=== PATIENT | male | born 1965 | race Caucasian/White ===

== ENCOUNTER 2023-10-15 09:51 | Outpatient (OUT) | payer SELFPAY ==
[2023-10-15 10:23] LABS: Bilirubin Urine NEGATIVE (NEGATIVE); Blood Urine NEGATIVE (NEGATIVE); Clarity Urine CLEAR (CLEAR); Color Urine LT. YELLOW (YELLOW); Glucose Urine UA NEGATIVE (NEGATIVE); Ketones Urine NEGATIVE (NEGATIVE); Leukocyte Esterase Urine NEGATIVE (NEGATIVE); Nitrite Urine NEGATIVE (NEGATIVE); Protein Urine NEGATIVE (NEG/TRACE); Specific Gravity Urine 1.025 (1.005-1.025); Urobilinogen Urine 0.2 EU/dL (0.2-1.0)
[2023-10-15 10:42] LABS: Bacteria Urine TRACE #/HPF (NONE SEEN); Cast Seen? NONE SEEN #/LPF (NONE SEEN); Crystals Seen? None Seen #/HPF (None Seen); Mucus Urine TRACE (NONE SEEN); RBC Urine 0-2 #/HPF (0-2); Squamous Epithelial Cell Urine RARE #/LPF (NONE/RARE)
[2023-10-16 05:08] LABS: HCV Antibody Non Reactive (Non Reactive)
== END 2023-10-15 09:52 | disposition home or self-care (01) ==
LOC: LAB 09:52
DX: I10 Essential (primary) hypertension (principal); Z11.59 Encounter for screening for other viral diseases
CPT/HCPCS: 36415; 81001; 86803

== ENCOUNTER 2024-12-19 08:34 | Outpatient (OUT) | payer SELFPAY ==
--- OUTSIDE RECORDS SUMMARY | 2024-12-19 08:40 | XMS_ITS | Clinical Summary ---
Author Organization [facility]AElo[facility] Address [address] [facility] [facility] [address], [address] [place] [address] Care Team Providers Care Global Sales Executive Name Role Phone Parveen Mullins MD Primary Care Provider [phone]- [phone] Allergies No known active allergies Medications MedicationSigDispense QuantityRefillsLast FilledStart DateEnd DateStatus amLODIPine (NORVASC) 5 MG tablet Indications:Primary hypertensionTake 1 tablet by mouth daily 90 tablet 5Active tadalafil (CIALIS) 5 MG tablet Take 1 tablet by mouth daily 90 tablet 5Active tamsulosin (FLOMAX) 0.4 MG capsule TAKE 1 CAPSULE BY MOUTH EVERY EVENING 90 capsule 5Active sildenafil (REVATIO) 20 MG tablet Indications:Other male erectile dysfunctionTake 3-5 tablets by mouth on an empty stomach as needed for erectile dysfunction 30 tablet 5Active valsartan-hydroCHLOROthiazide (DIOVAN HCT) 160-12.5 MG per tablet Indications:Primary hypertensionTake 1 tablet by mouth daily 90 tablet 504/6Active valsartan-hydroCHLOROthiazide (DIOVAN HCT) 160-12.5 MG per tablet Indications:Primary hypertensionTake 1 tablet by mouth daily 90 tablet Discontinued(REORDER) Active Problems ProblemNoted DateDiagnosed DateProstate zdyocb4103/24/2022PH with obstruction/lower urinary tract pipmqrqa40/24/2020Elevated PSA04/21/2019Other male erectile vgcmidzgbgt88/14/7608Axdqugkmdh07/14/7649Pufggqv24/09/2018 Encounters DateTypeDepartmentCare FyvdMyumtiqcaqd39/20/2025[facility] [address] [place] [address] [address] [place] [address] Parveen Mullins MD Medication Acqydg5510/16/2024 10:00 AM EDTOffice Visit [facility] Part of [address] [place] [address] Emily Ramirez, ACTIVITIES LEADER - SHIPPING LEAD Prostate cancer (HCC) (Primary Dx); BPH with obstruction/lower urinary tract symptoms; Other male erectile fyeanzmonto43/20/2025Orders Only [address] [place] [address] Valarie Blackmon MD 09/19/2024Ref[address] [place] [address] Parveen Mullins MD Medication Vdcfos0309/18/2024 8:00 AM EDTOffice Visit [address] [place] [address] Parveen Mullins MD Primary hypertension (Primary Dx); Mixed hyperlipidemia; Screening for HIV without presence of risk factors; Need for hepatitis C screening testfrom Last 3 Months Family History Medical HistoryRelationNameCommentsCancerMotherRelationNameStatusCommentsFather DeceasedMotherAlive Social History Tobacco UseTypesPacks/DayYears UsedDateSmoking Tobacco: NeverSmokeless Tobacco: Never Tobacco Cessation:Counseling Given: Not Answered Alcohol UseStandard Drinks/WeekCommentsNot Currently0 (1 standard drink = 0.6 oz pure alcohol)socialAHC UtilitiesAnswerDate RecordedIn the past 12 months has the [employer], gas, oil, or water [employer] threatened to shut off services in your home?No09/18/2024Overall Financial Resource Strain (CARDIA)AnswerDate Recorded How hard is it for you to pay for the very basics like food, housing, medical care, and heating?Not hard at all4PHQ-2AnswerDate RecordedPHQ-9 Total Aelqz204/24/2025Hunger Vital SignAnswerDate RecordedWithin the past 12 months, you worried that your food would run out before you got the money to buymore. Never true09/18/2024Within the past 12 months, the food you bought just didn't last and you didn't have money to get more.Never true09/18/2024PRAPARE - TransportationAnswerDate RecordedIn the past 12 months, has lack of transportation kept you from medical appointments or from getting medications?No 09/18/2024In the past 12 months, has lack of transportation kept you from meetings, work, or from getting things needed for daily living?No09/18/2024 Housing Stability Vital SignAnswerDate RecordedUnable to Pay for Housing in the Last YearNot on file07/05/2023Number of Places Lived in the Last YearNot on file 07/05/2023In the last 12 months, was there a time when you did not have a steady place to sleep or slept in [facility] (including now)?No07/05/2023Housing Stability Vital SignAnswerDate RecordedIn the last 12 months, was there a time when you were not able to pay the mortgage or rent on time?No09/18/2024In the past 12 months, how many times have you moved where you were living? At any time in the past 12 months, were you homeless or living in a snf (including now)?No09/18/2024Food InsecurityAnswerDate RecordedWithin the past 12 months, you worried that your food would run out before you got the money to buy more.Within the past 12 months, the food you bought just didn't last and you didn't have money to get more.Sex and Gender InformationValue Date RecordedSex Assigned at BirthNot on fileLegal NelFadj1704/01/2019 9:44 AM EST Gender IdentityNot on fileSexual OrientationNot on file Last Filed Vital Signs Vital SignReadingTime TakenCommentsBlood Zfoaefng000/7708 10:01 AM EDT Ftahy3219/21/2025 9:53 AM RFQAnyufclreai93.5 ??C (97.7 ??F)10/16/2024 9:53 AM EDTRespiratory Rauk585010/17/2023 8:44 AM EDTOxygen Pqadoxorii09%09/18/2024 7:49 AM EDTInhaled Oxygen Concentration--Lvvqdj71.8 kg (220 lb)10/16/2024 9:53 AM EDT Lxrqvd712.3 cm (5' 11 )05/15/2024 7:55 AM EDTBody Mass Index30.68005/15/2024 7:55 AM EDT Plan of Treatment DateTypeDepartmentCare Team (Latest Contact Info)Cwcyumjvzkq93/28/2025 8:00 AM EDTOffice Visit [facility] [address] [place] [address] [address] [place] [address] Parveen Mullins MD [address] [place] [address] [address] [place], [place] [id number] fu htn hld labs before.10/20/2025 8:00 AM EDTOffice Visit [facility] Part of [address] [place] [address] Elías Moore, PASocorroC [address] [place] [address] [address] [place] [address] 1Y PSAHealth MaintenanceDue DateLast DoneCommentsHIV tomqou9901/30/1978Hepatitis C vfdvdo3301/30/1981DTaP/Tdap/Td vaccine (1 - Tdap)01/30/19820440Puxzgzoyqqx64/05/2008 Colorectal Cancer Fehurd0401/31/2008FIT/FOBT: Average risk01/31/2008Fecal-DNA (Cologuard): Average risk01/31/2008Sigmoidoscopy/CT wkbspiggkqms39/05/2008 Pneumococcal 50+ years Vaccine (1 of 1 - PCV)2013Shingles vaccine (1 of 2) 2013Flu vaccine (#1)5COVID-19 Vaccine (1 - season) 2024Prostate Specific Antigen (PSA) Screening or Gxinjxycxb08/19/2026 04/16/2024, 10/15/2023, 11/27/2022, Additional history existsGFR test (Diabetes, CKD 3-4, OR last GFR 15-59)/01/2025, 01/16/2024, 09/03/2023 Depression Qtkozr55, 09/18/2024Diabetes egxtrc9804/24/2026 04/24/20239236Chabox01, 04/24/2023espiratory Syncytial Virus (RSV) or age 60 yrs+ (1 - 1-dose 75+ series)2038Hepatitis A vaccineAged OutNo longer eligible based on patient's age to complete this topic Hepatitis B vaccineAged OutNo longer eligible based on patient's age to complete this topicHib vaccineAged OutNo longer eligible based on patient's age to complete this topicMeningococcal (ACWY) vaccineAged OutNo longer eligible based on patient's age to complete this topicMeningococcal B vaccineAged OutNo longer eligible based on patient's age to complete this topicPolio vaccineAged OutNo longer eligible based on patient's age to complete this topic Procedures Procedure NamePriorityDate/TimeAssociated DiagnosisCommentsMEAS,POST-VOID RES,US,NON-CDNFQNZXozujof61/21/2025 10:12 AM EDT BPH with obstruction/lower urinary tract symptoms PSA XIVVLJWankicu92/19/2025 10:31 AM EDTBASIC METABOLIC VQVFZUnlbkke70/12/2025 Primary hypertension LIPID RXNZZWcyqqhe51/12/2025 PSA, UMIGVHBCFXQdsfeap67/19/2025 Prostate cancer (HCC) HEMOGLOBIN U6FGetomrj73/27/2024 from Last 3 Months or Most Recently Relevant to Health Maintenance Results * PSA Screen (10/14/2024 10:31 AM EDT)Specimen (Source)Anatomical Location / LateralityCollection Method / VolumeCollection TimeReceived TimeBloodBLOOD SPECIMEN / Unknown Narrative Authorizing ProviderResult TypeResult StatusHistorical Provider MDCHEMISTRY ORDERABLESFinal Result * (ABNORMAL) Lipid Panel (05/07/2024)ComponentValueRef RangeTest MethodAnalysis TimePerformed AtPathologist SignatureCholesterol, Jmlrm608(H)mg/sCEFO2854 - 70 mg/dLLDL Uxsdclqtxtr840.5Owhebrzfmdvhb23qj/dLChol/HDL Ratio4.5FRJO07.6mg/dL Cholesterol non HDLSpecimen (Source)Anatomical Location / LateralityCollection Method / VolumeCollection TimeReceived TimeBloodBLOOD SPECIMEN / Unknown 05/07/2024 Narrative Authorizing ProviderResult TypeResult StatusHistorical Provider MDCHEMISTRY ORDERABLESEdited Result - Final * (ABNORMAL) Basic Metabolic Panel (05/07/2024)ComponentValueRef RangeTest MethodAnalysis TimePerformed AtPathologist MnuqqhldcTjqxir790lnfx/XGecikmpm957 mmol/LPotassium4.0mmol/LBUN24.0(H)mg/dLCreatinine1.26mg/iVDfcrlxn452zn/dLCO2 29.8mmol/LCalcium9.0mg/dLEst, Glom Filt Rate58(L)Comment:see impression Specimen (Source)Anatomical Location / LateralityCollection Method / Volume Collection TimeReceived TimeBloodBLOOD SPECIMEN / Ysdqler7305/07/2024 Impressions Renetta Mcgee MA - 05/07/2024 EGFR AA: >60 EGFR JACQUELINE: 58 (low) Narrative Authorizing ProviderResult TypeResult StatusTanclemencia Mullins MDCHEMISTRY ORDERABLESFinal Result * PSA, Diagnostic (04/16/2024)ComponentValueRef RangeTest MethodAnalysis Time Performed AtPathologist SignaturePSA8.19ng/mLSpecimen (Source)Anatomical Location / LateralityCollection Method / VolumeCollection TimeReceived Time BLOOD SPECIMEN / Xjkddps7404/16/2024 Narrative Authorizing ProviderResult TypeResult StatusEmily Ramirez ACTIVITIES LEADER - SHIPPING LEAD CHEMISTRY ORDERABLESEdited Result - Final * Hemoglobin A1C (04/24/2023)ComponentValueRef RangeTest MethodAnalysis Time Performed AtPathologist SignatureHemoglobin A1C5.5%Estimated Avg Kytnupi804 Specimen (Source)Anatomical Location / LateralityCollection Method / Volume Collection TimeReceived TimeBloodBLOOD SPECIMEN / Xqxnnje7604/24/2023 Narrative Authorizing ProviderResult TypeResult StatusHistorical Provider MDCHEMISTRY ORDERABLESFinal Result from Last 3 Months or Most Recently Relevant to Health Maintenance Care Teams Team MemberRelationshipSpecialtyStart DateEnd Date Parveen Mullins MD [address] [place] [address] PCP - GeneralFamily Medicine10/15/23
--- OUTSIDE RECORDS SUMMARY | 2024-12-19 08:40 | XMS_ITS | Encounter Summary ---
Author Organization [facility] Address [address], [address] [place] [address] Care Team Providers Care Junior Legal Secretary Name Role Phone Parveen Mullins MD Primary Care Provider +1- [phone] Reason for Visit * ReasonOnset DateCommentsMedication Mmmhuw9812/15/2024 Encounter Details DateTypeDepartmentCare Team (Latest Contact Info)Kjkmbacxwfl99/20/2025[facility] [address] [place] [address] [place] [address] Parveen Mullins MD [address] [place] [address] Medication Refill Social History Tobacco UseTypesPacks/DayYears UsedDateSmoking Tobacco: NeverSmokeless Tobacco: NeverAlcohol UseStandard Drinks/WeekCommentsNot Currently0 (1 standard drink = 0.6 oz pure alcohol)[facility] UtilitiesAnswerDate RecordedIn the past 12 months has the [employer], gas, oil, or water [employer] threatened to shut off services in your home?No09/18/2024Overall Financial Resource Strain (CARDIA)AnswerDate RecordedHow hard is it for you to pay for the very basics like food, housing, medical care, and heating?Not hard at all07/05/2023HQ-2AnswerDate RecordedPHQ-9 Total Zimqd348Hunger Vital SignAnswerDate RecordedWithin the past 12 months, you worried that your food would run out before you got the money to buy more.Never true09/18/2024Within the past 12 months, the food [...] steady place to sleep or slept in ashelter (including now)?No07/05/2023Housing Stability Vital SignAnswerDate RecordedIn the last 12 months, was there a time when you were not able to pay the mortgage or rent on time?No09/18/2024In the past 12 months, how many times have you moved where you were living? At any time in the past 12 months, were you homeless or living in a senior living (including now)?No09/18/2024Food InsecurityAnswerDate RecordedWithin the past 12 months, you worried that your food would run out before you got the money to buy more.Within the past 12 months, the food you bought just didn't last and you didn't have money to get more.Sex and Gender InformationValue Date RecordedSex Assigned at BirthNot on fileLegal FbwIvvr5004/01/2019 9:44 AM EST Gender IdentityNot on fileSexual OrientationNot on filedocumented as of this encounter Plan of Treatment DateTypeDepartmentCare Team (Latest Contact Info)Ygcyfpcnija58/28/2025 8:00 AM EDTOffice Visit [facility] [address] [place] [address] [place] [address] Parveen Mullins MD [address] [place] [address] fu htn hld labs before.10/20/2025 8:00 AM EDTOffice Visit [facility] Part of [facility] [address] [place] [address] Elías Moore, PA-C [address] [place] [address] 1Y PSAdocumented as of this encounter Visit Diagnoses Diagnosis Primary hypertension Unspecified essential hypertension documented in this encounter Care Teams Team MemberRelationshipSpecialtyStart DateEnd Date HarpreetParveen MD [address] [facility] [place] [address] PCP - GeneralFamily Medicine10/15/23documented as of this encounter
--- OUTSIDE RECORDS SUMMARY | 2024-12-19 08:41 | XMS_ITS | CCD ---
Author Organization [facility] Care Team Providers Care Polymer Engineer Name Role Phone House, Sr Michael Barakat Primary Care Provider REQUEST, DR TORRES LISTED Consulting Unavaila ble HOUSE, DR DSOUZA Primary Care Unavailable MISC, DR TRUONG Admitting Unavailable MISC, DR TRUONG Attending Unavailable REQUEST, DR TORRES LISTED Attending Unavaila ble REQUEST, DR TORRES LISTED Consulting Unavaila ble REQUEST, DR TORRES LISTED Admitting Unavaila ble MISC, DR TRUONG Primary Care Unavailable MISC, DR TRUONG Admitting Unavailable HOUSE, DR DSOUZA Primary Care Unavailable MISC, DR TRUONG Attending Unavailable MISC, DR TRUONG Consulting Unavailable PAY ., DR GANDARA Attending Unavailable GRECHNY ., BARRETT TOLEDO Consulting Unavailabl e HOUSE, DR DSOUZA Primary Care Unavailable PAY ., DR GANDARA Admitting Unavailable House Sr., Michael HERCULES Primary Care Provider Elian Dior MD Primary Care Provider MICHAEL CHRISTINA SR Primary Care Unavailable HAYES RAMIREZ Referring Unavailable HOUSE SR, MICHAEL Barakat Primary Care Unavailable HAYES RAMIREZ Referring Unavailable NEWKIRK MICHAEL SALAS Primary Care Unavailable MELISSA MOORE Referring Unavailable HOUSE SR, MICHAEL Barakat Primary Care Unavailable JOCY SAINI Referring Unavailable ELIAN DIOR Referring Unavailable ELIAN DIOR Primary Care Unavailable Medications Current Medications MedicationDrug Class(es)DatesSig (Normalized)Sig (Original)ciprofloxacin 500 mg oral tablet (1 source)Quinolone AntimicrobialStart: 04-03-2019 End: 51-33-1681qzirbaxmwgfnw (CIPRO) 500 MG tablet Indications: Elevated PSA Take 1 tablet by mouth 2 times daily for 3 days Start 1 day prior to prostate biopsy 6 tablet 0 04/03/2019 04/06/2019 Activedoxazosin 1 mg oral tablet (3 sources)alpha-Adrenergic Blockertake 1 tablet by mouth once dailydoxazosin (CARDURA) 1 MG tablet Take 1 mg by mouth nightly 0 Activedoxycycline hyclate 100 mg oral tablet (2 sources)Tetracycline-class DrugStart: 06-22-2021 End: 22-57-4108mtja 1 tablet by mouth twice dailydoxycycline hyclate (VIBRA- TABS) 100 MG tablet Take 1 tablet by mouth 2 times daily for 14 days 28 tablet 0 06/22/2021 07/06/2021 ActiveStart: 05-10-2020 End: 09-91-0909awbs 1 tablet by mouth twice dailydoxycycline hyclate (VIBRA- TABS) 100 MG tablet Take 1 tablet by mouth 2 times daily for 14 days 28 tablet 0 05/10/2020 05/24/2020 Activeibuprofen 600 mg oral tablet (2 sources)Nonsteroidal Anti-inflammatory DrugStart: 03-15-2020 End: 18-62-7230adte 1 tablet by mouth three times dailyibuprofen (ADVIL;MOTRIN) 600 MG tablet Indications: Orchitis Take 1 tablet by mouth 3 times daily for 3 days 9 tablet 0 03/15/2020 03/18/2020 Activetake 1 tablet by mouth every six hours as needed for painibuprofen (ADVIL;MOTRIN) 400 MG tablet Take 1 tablet by mouth every 6 hours as needed for Pain 0 Activeketorolac tromethamine 10 mg oral tablet (1 source)Nonsteroidal Anti-inflammatory Drug, Cyclooxygenase InhibitorStart: 08-07-2023 End: 53-86-7543ippd 1 tablet by mouth every twelve hoursketorolac (TORADOL) 10 MG tablet Take 1 tablet by mouth every 12 hours 8 tablet 0 08/07/2023 08/06/2024 ActivelevoFLOXacin 500 mg oral tablet (2 sources)Quinolone AntimicrobialStart: 09-03-2023 End: 63-05-9436sdmp 1 tablet by mouth once dailylevoFLOXacin (LEVAQUIN) 500 MG tablet Take 1 tablet by mouth daily for 10 days 10 tablet 0 09/03/2023 09/13/2023 ActiveStart: 03-15-2020 End: 07-88-9188ivng 1 tablet by mouth once dailylevoFLOXacin (LEVAQUIN) 500 MG tablet Indications: Orchitis Take 1 tablet by mouth daily for 10 days 10 tablet 0 03/15/2020 03/25/2020 Activesildenafil 20 mg oral tablet (8 sources)Phosphodiesterase 5 InhibitorStart: 41-72-5847oewxabmuhz (REVATIO) 20 MG tablet Indications: Other male erectile dysfunction TAKE 3 TABLETS BY MOUTH NEEDED 30 tablet 3 11/06/2023 ActiveStart: 50-36-4932usjeuzwahx (REVATIO) 20 MG tablet Indications: Other male erectile dysfunction TAKE 3 TABLETS BY MOUTH NEEDED 30 tablet 3 09/21/2022 ActiveStart: 00-37-8383nawrxbtmvm (REVATIO) 20 MG tablet Indications: Other male erectile dysfunction TAKE 3 TABLETS BY MOUTH NEEDED 30 tablet 3 12/23/2021 ActiveStart: 91-43-3416wistsebszo (REVATIO) 20 MG tablet Take 3 tablets by mouth as needed (erectile dysfunction) 30 tablet 3 08/23/2020 ActiveStart: 66-57-8558hlblzetfhh (VIAGRA) 100 MG tablet Take 1 tablet by mouth as needed for Erectile Dysfunction 30 tablet 2 11/20/2019 Active Start: 20-37-7796sncaviqlhw (VIAGRA) 100 MG tablet TAKE 1 TABLET BY MOUTH NEEDED 0 03/27/2019 Activetadalafil 5 mg oral tablet (1 source)Phosphodiesterase 5 InhibitorStart: 18-98-4268fxpk 1 tablet by mouth once dailytadalafil (CIALIS) 5 MG tablet Take 1 tablet by mouth daily 30 tablet 11 05/10/2020 Activetamsulosin hydrochloride 0.4 mg oral capsule (5 sources)alpha-Adrenergic BlockerStart: 39-08-4309oeug 1 capsule by mouth once daily in the eveningtamsulosin (FLOMAX) 0.4 MG capsule Indications: Benign prostatic hyperplasia with lower urinary tract symptoms TAKE 1 CAPSULE BY MOUTH EVERY EVENING 90 capsule 3 05/09/2023 ActiveStart: 86-23-3212afgc 1 capsule by mouth once daily in the eveningtamsulosin (FLOMAX) 0.4 MG capsule TAKE 1 CAPSULE BY MOUTH EVERY DAY IN THE EVENING 90 capsule 3 02/23/2022 ActiveStart: 60-65-0885pgpd 1 capsule by mouth once daily in the eveningtamsulosin (FLOMAX) 0.4 MG capsule Indications: BPH with obstruction/lower urinary tract symptoms Ta ke 1 capsule by mouth every evening 90 capsule 3 12/22/2020 Active Problems Active Problems Problem ClassificationProblemDateDocumented DateEpisodic/ChronicCancer of prostate (5 sources)Malignant tumor of prostate; Translations: [Malignant neoplasm of prostate]Onset: [id number]wbm of device; implant or graft (3 sources)Leakage of indwelling urethral catheter, initial encounter; Translations: [LEAKAGE INDWELL URETHRALCATH INIT]Onset: 53-46-5752Farczfno Essential hypertension (2 sources)Essential hypertension; Translations: [Essential (primary) hypertension]Onset: 907490-91-5437FpdmvrgQfdxwupatiubh symptoms and ill- defined conditions (1 source)Presence of urogenital implants; Translations: [PRESENCE OF UROGENITAL IMPLANTS]Onset: 96-34-1817JkeeczgZmpslelfswm of prostate (8 sources)Benign prostatic hyperplasia; Translations: [Benign prostatic hypertrophy with outflow obstruction]Onset: 478396-65-9084Pqymhoe Inflammatory conditions of male genital organs (1 source)Chronic prostatitis; Translations: [Chronic prostatitis]Chronic Inflammatory conditions of male genital organs (1 source)Orchitis; Translations: [Orchitis]EpisodicOther aftercare (1 source)Other mcc (current) drug therapy; Translations: [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]Onset: 72-27-8262RyaybmfbWfnbc diseases of bladder and urethra (1 source)Other specified disorders of bladder; Translations: [OTHER SPECIFIED DISORDERS BLADDER]Onset: 75-05-4881CmkupywWqzsi male genital disorders (7 sources)Other male erectile dysfunction; Translations: [Impotence of organic origin]Onset: 703052-09-0071PcbknozHwmfq screening for suspected conditions (not mental disorders or infectious disease) (16 sources)Raised prostate specific antigen; Translations: [Elevated prostate specific antigen [PSA]]Onset: 489598-53-6084Xerylgme Past or Other Problems Problem ClassificationProblemDateDocumented DateEpisodic/ChronicCalculus of urinary tract (2 sources)Renal colic; Translations: [Unspecified renal colic]Onset: 09-03-2023 47-39-1732AimohsmiDrdxjrzj mellitus without complication (7 sources)Glycosuria; Translations: [Glycosuria]Onset: EpisodicGenitourinary symptoms and ill-defined conditions (11 sources)Dysuria; Translations: [Increased frequency of urination]Onset: 155432-06-2550TnygbvorQwxwc male genital disorders (1 source)Left testicular pain; Translations: [Left testicular pain]Onset: 51-33-6708Iwhhtcuw Results Test NameValueInterpretationReference RangeFacilityBasic Metabolic Panelon 36-33-3009Fitqh gap [Moles/Vol]11 mmol/L9 - 16 mmol/LBon [facility]ours Mer[facility] Health Calcium [Mass/Vol]9.3 mg/dL8.6 - 10.4 mg/dLBon Secours Mercy HealthChloride [Moles/Vol]104 mmol/L98 - 107 mmol/LBon Secours Mercy HealthCO2 [Moles/Vol]24 mmol/L20 - 31 mmol/LBon Secours Mercy HealthCreatinine [Mass/Vol]1.0 mg/dL0.70 - 1.20 mg/dLBon Secours Mercy HealthEst, Glom Filt Rate90- PINFBon Secours Mercy HealthComment on above: These results are not intended for use in patients <18 years of age. eGFR results are calculated without a race factor using the 2020 CKD-EPI equation. Careful clinical correlation is recommended, particularly when comparing to results calculated using previous equations. The CKD-EPI equation is less accurate in patients with extremes of muscle mass, extra-renal metabolism of creatine, excessive creatine ingestion, or following therapy that affects renal tubular secretion. Glucose [Mass/Vol]97 mg/dL74 - 99 mg/dLBon Secours Mercy HealthPotassium [Moles/Vol]3.7 mmol/L3.7 - 5.3 mmol/LBon Secours Mercy HealthSodium [Moles/Vol] 139 mmol/L136 - 145 mmol/LBon Secours Mercy HealthUrea nitrogen [Mass/Vol]18 mg/dL8 - 23 mg/dLBon Secours Mercy HealthUrea nitrogen/Creatinine [Mass ratio]18 mg/mg9 - 20Bon [facility] HealthBon [facility] HospitalBasic Metabolic Prof on 88-90-9444Ndwzg gap [Moles/Vol]11 mmol/LNormal9-16[facility] Comment on above:Performed By: #### BMP #### [facility] [address] [place] [address] [address] [place], [place] [id number] Scaler: Isidoro Ivy MDBUN/CRE Gxrov55Likwkp7-02Ngcaa [facility] Comment on above:Performed By: #### BMP #### [facility] [address] [place] [address] [place] [address] Scaler: LYNETTE Mederosalcium [Mass/Vol]9.3 mg/dLNormal8.6-10.4[facility] HospitalComment on above:Performed By: #### BMP #### [address] [place], [place] [id number] Scaler: LYNETTE Mederoshloride [Moles/Vol]104 mmol/BZxnskb17-436JuesuMemorial Health System Marietta Memorial HospitalComment on above:Performed By: #### BMP #### [address] [place], [place] [address]83 Scaler: Isiodro Ivy MDCO2 [Moles/Vol]24 mmol/ZBwjzuq19-70FoijkMemorial Health System Marietta Memorial HospitalComment on above:Performed By: #### BMP #### [address] [place] [address] Scaler: LYNETTE Mederosreatinine [Mass/Vol]1.0 mg/dLNormal0.70-1.20[facility] HospitalComment on above:Performed By: #### BMP #### [address] [place], [place] [id number] Scaler: Isidoro Ivy MDGFR/1.73 sq M.predicted among non-blacks MDRD (S/P/Bld) [Vol rate/Area]90 mL/min/{1.73_m2}Normal>60[facility] Comment on above:Result Comment: These results are not intended for use in patients <18 years of age. eGFR results are calculated without a race factor using the 2020 CKD-EPI equation. Careful clinical correlation is recommended, particularly when comparing to results calculated using previous equations. The CKD-EPI equation is less accurate in patients with extremes of muscle mass, extra-renal metabolism of creatine, excessive creatine ingestion, or following therapy that affects renal tubular secretion.Performed By: #### BMP #### [address] [place] [address] Scaler: Isidoro Ivy MDGlucose [Mass/Vol]97 mg/yFQszzim72-19TmpvbSalem City HospitalComment on above:Performed By: #### BMP #### [address] [place] [id number] Scaler: TAMY Mederosotassium [Moles/Vol]3.7 mmol/LNormal3.7-5.3MOhioHealth Berger Hospital HospitalComment on above:Performed By: #### BMP #### [address] [place] [address] Scaler: ESTUARDO Mederosodium [Moles/Vol]139 mmol/MPwmwla596-367LonldMemorial Health System Marietta Memorial HospitalComment on above:Performed By: #### BMP #### [address] [place] [address] Scaler: Isidoro Ivy MDUrea nitrogen [Mass/Vol]18 mg/dLNormal8-23[facility] HospitalComment on above:Performed By: #### BMP #### [address] [place] [address] Scaler: Isidoro Ivy MDCT ABDOMEN PELVIS WO CONTRASTon 51-61-7033XH ABDOMEN PELVIS WO CONTRASTEXAMINATION: CT OF THE ABDOMEN AND PELVIS WITHOUT CONTRAST 09/03/2023 3:42 pm TECHNIQUE: CT of the abdomen and pelvis was performed without the administration of intravenous contrast. Multiplanar reformatted images are provided for review. Automated exposure control, iterative reconstruction, and/or weight based adjustment of the mA/kV was utilized to reduce the radiation dose to as low as reasonably achievable. COMPARISON: MRI 08/12/2021 HISTORY: ORDERING SYSTEM PROVIDED HISTORY: Frequency of urination TECHNOLOGIST PROVIDED HISTORY: FINDINGS: Lower Chest: Lung bases are clear. Organs: There is an indeterminate 4.3 x 2.8 cm segment 6 hepatic lesion. The unenhanced liver, spleen, pancreas, gallbladder are grossly without acute focal abnormality. There is very subtle stranding along the adrenal glands, nonspecific. There is a 3 mm nonobstructing right renal calculus. No hydronephrosis. There is mild left perinephric stranding and mild urothelial stranding along the left proximal ureter and renal pelvis. GI/Bowel: Colonic diverticulosis without acute diverticulitis. No dilated loops of bowel or bowel wall thickening. The appendix is normal. No free air. Pelvis: Mild prostatic hypertrophy. The bladder is decompressed. No pathologically enlarged adenopathy or free fluid. Postsurgical changes from bilateral inguinal hernia repair. Peritoneum/Retroperitoneum: The aorta is normal in caliber. No pathologically enlarged adenopathy. No ascites or drainable fluid collection. Bones/Soft Tissues: Remote bilateral pubic rami fractures. No other acute findings in the bones or soft tissues. IMPRESSION: 1. Nonspecific left perinephric stranding as well as stranding along the left renal pelvis or proximal ureter suspicious for infection or inflammation. Recommend correlation with urinalysis. 2. 3 mm nonobstructing right renal calculus. 3. Indeterminate 4.3 cm segment 6 hepatic lesion. Recommend further evaluation with nonemergent liver MRI. Interpreted by: Taylor Long MD Signed by: Taylor Long MD 09/06/23 Final resultNormOhioHealth Southeastern Medical CenterCult,Urineon 80-32-6990Zhzj,UrineSpecimen Description .CLEAN CATCH URINE Special Requests Site: Urine Culture NO GROWTH Report Status FINAL 09/04/2023NoKettering Health Greene MemorialComment on above: Performed By: #### URC #### [place] [address] Scaler: Hammad Vuong MD [facility] [address] [place] [address] [address] [place], [place] [id number] Scaler: Marybeth Mederos Metabolic Profon 12-11-2007Frmhvryri [Moles/Vol]4.1 mmol/LNormal3.7-5.3[facility] HospitalComment on above: Performed By: #### BMP, CDP #### [address] [place], [place] [address]83 Scaler: Isidoro Ivy MDAnion gap [Moles/Vol]8 mmol/LLow9-17[facility] HospitalComment on above:Performed By: #### BMP, CDP #### [address] [place], [place] [address]83 Scaler: Isidoro Ivy MDBUN/CRE Xbdxk83Phqlog5-80Fgfid [facility] Comment on above:Performed By: #### BMP, CDP #### [address] [place] [address] Scaler: Isidoro Ivy MDCalcium [Mass/Vol]8.9 mg/dLNormal8.6-10.4[facility] HospitalComment on above:Performed By: #### BMP, CDP #### [address] [place], [place] [address]83 Scaler: Isidoro Ivy MDChloride [Moles/Vol]106 mmol/TQngmun01-483SgmpzMemorial Health System Marietta Memorial HospitalComment on above:Performed By: #### BMP, CDP #### [facility] [address] [place] [address] Dr. [place], [place] [phone] Scaler: Isidoro Ivy MDCO2 [Moles/Vol]27 mmol/AYhrhok60-93Jyomh [facility] HospitalComment on above:Performed By: #### BMP, CDP #### [address] [place], [place] [address]83 Scaler: LYNETTE Mederosreatinine [Mass/Vol]1.5 mg/dLHigh0.7-1.2MSalem City HospitalComment on above:Performed By: #### LYDIA, CDP #### [address] [place] [address] Scaler: Isidoro Ivy MDGFR/1.73 sq M.predicted among non-blacks MDRD (S/P/Bld) [Vol rate/Area]53 mL/min/{1.73_m2}Low>60[facility] HospitalComment on above:Result Comment: These results are not intended for use in patients <18 years of age. eGFR results are calculated without a race factor using the 2020 CKD-EPI equation. Careful clinical correlation is recommended, particularly when comparing to results calculated using previous equations. The CKD-EPI equation is less accurate in patients with extremes of muscle mass, extra-renal metabolism of creatine, excessive creatine ingestion, or following therapy that affects renal tubular secretion.Performed By: #### LYDIA, CDP #### [address] [place] [address] Scaler: Isidoro Ivy MDGlucose [Mass/Vol]96 mg/gBMwlbbw85-73Hbhvb [facility] HospitalComment on above:Performed By: #### LYDIA, CDP #### [address] [place] [address] Scaler: ESTUARDO Mederosodium [Moles/Vol]141 mmol/RYuopzc783-142Emmyw [facility] HospitalComment on above:Performed By: #### LYDIA, CDP #### [address] [place] [address] Scaler: Isidoro Ivy MDUrea nitrogen [Mass/Vol]28 mg/dLHigh8-23[facility] HospitalComment on above:Performed By: #### BMP, CDP #### [address] [place] [address] Scaler: BOB Mederos with Diffon 36-76-1767Myu. Basophil0.03 k/uL Normal0.00-0.20[facility] HospitalComment on above:Performed By: #### BMP, CDP #### [address] [place] [address] Scaler: MDAbs. Rosa MImm.Granulocyte<0.93Niadun3.00-0.30MerMercy Hospital HospitalComment on above:Performed By: #### BMP, CDP #### [address] [place] [address] Scaler: Festus Mederos.Neutrophil (Seg)3.94 k/uLNormal1.50-8.10[facility] HospitalComment on above:Performed By: #### LYDIA, CDP #### [address] [place], [place] [address] Scaler: Isidoro Ivy MDBasophils/100 WBC (Bld)1 %Normal0-2MOhioHealth Berger Hospital HospitalComment on above:Performed By: #### LYDIA, CDP #### [address] [place] [address] Scaler: Isidoro Iyv MDEosinophils (Bld) [#/Vol]0.21 10*3/uLNormal 0.00-0.44[facility] HospitalComment on above:Performed By: #### BMP, CDP #### [address] [place], [place] [address] Scaler: TONJA Mederososinophils/100 WBC (Bld)4 %Normal1-4[facility] HospitalComment on above:Performed By: #### BMP, CDP #### [address] [place] [address] Scaler: Isidoro Ivy MDErythrocyte distribution width (RBC) [Ratio]12.4 % Drqupa11.8-14.4[facility] HospitalComment on above:Performed By: #### BMP, CDP #### [address] [place], [place] [address]83 Scaler: Isidoro Ivy MDHematocrit (Bld) [Volume fraction]44.0 %Normal 40.7-50.3MOhioHealth Berger Hospital HospitalComment on above:Performed By: #### BMP, CDP #### [address] [place], [facility] Scaler: Isidoro Ivy MDHemoglobin (Bld) [Mass/Vol]14.7 g/dLNormal 13.0-17.0[facility] HospitalComment on above:Performed By: #### BMP, CDP #### [address] [place], [place] [address] Scaler: Roger Mederosmature granulocytes/100 WBC (Bld)0 %Olxzmm0Dpkbd [facility] HospitalComment on above:Performed By: #### LYDIA, CDP #### [address] [place], [facility] Scaler: Isidoro Ivy MDLymphocytes (Bld) [#/Vol]1.07 10*3/uLLow1.10-3.70 [facility] HospitalComment on above:Performed By: #### BMP, CDP #### [address] [place] [address] Scaler: Israel Mederosmphocytes/100 WBC (Bld)18 %Fty26-06EuqwvMemorial Health System Marietta Memorial HospitalComment on above:Performed By: #### BMP, CDP #### [address] [place] [address] Scaler: SAKSHI MederosCH (RBC) [Entitic mass]29.9 zeSuqsxm55.2-33.5 [facility] HospitalComment on above:Performed By: #### BMP, CDP #### [address] [place] [address] Scaler: SAKSHI MederosCHC (RBC) [Mass/Vol]33.4 g/yVTjlqjq21.4-34.8[facility] HospitalComment on above:Performed By: #### BMP, CDP #### [address] [place], [place] 317[address]83 Scaler: SAKSHI MederosCV (RBC) [Entitic vol]89.6 vEQkkxnz73.6-102.9 [facility] HospitalComment on above:Performed By: #### BMP, CDP #### [address] [place], [place] 1075283 Scaler: SAKSHI Mederosonocytes (Bld) [#/Vol]0.57 10*3/uLNormal0.10-1.20 [facility] HospitalComment on above:Performed By: #### BMP, CDP #### [address] [place] [address] Scaler: SAKSHI Mederosonocytes/100 WBC (Bld)10 %Normal3-12[facility] HospitalComment on above:Performed By: #### BMP, CDP #### [address] [place] [address] Scaler: Isidoro Ivy MDNeutrophil (Seg)67 %Mkol26-93KjlghMemorial Health System [facility] Comment on above:Performed By: #### BMP, CDP #### [address] [place], [place] [address]83 Scaler: Isidoro Ivy MDNRBC Automated0.0 per 100 WBCNormal0.0[facility] HospitalComment on above:Performed By: #### BMP, CDP #### [facility] [address] [place] [address] Scaler: Sarah Mederos mean volume (Bld) [Entitic vol]10.1 fL Normal8.1-13.5[facility] HospitalComment on above:Performed By: #### BMP, CDP #### [address] [place], [place] [address] Scaler: Bowen Mederos (Bld) [#/Vol]189 10*3/uDLvbhvx350-188 [facility] HospitalComment on above:Performed By: #### BMP, CDP #### [address] [place], [place] [address] Scaler: SONI MederosBC (Bld) [#/Vol]4.91 10*6/uLNormal4.21-5.77[facility] HospitalComment on above:Performed By: #### BMP, CDP #### [address] [place], [place] [address] Scaler: MILTON Mederos (Bld) [#/Vol]5.8 10*3/uLNormal3.5-11.3Mclermont county hospitaly [facility] HospitalComment on above:Performed By: #### BMP, CDP #### [address] [place], [place] [address] Scaler: Isidoro Ivy MDUrinalysis w/ Microon 78-51-9363ZkgzroeyKAQQY AbnormalNONEMercKettering Health Springfield HospitalComment on above:Performed By: #### UAMIC #### [address] [place] [address] Scaler: Isidoro Ivy MDBilirubin, SemiQt,UrNegativeNormalNEGSelect Medical Specialty Hospital [facility] HospitalComment on above:Performed By: #### UAMIC #### [facility] [address] [place], [place] [address]83 Scaler: Saloni Mederos, UrineNegativeNoOhio State University [facility] Medical Center Comment on above:Performed By: #### UAMIC #### [facility] [address] [place], [place] [address]83 Scaler: LYNETTE Mederoslarity (U)ClearNormalCLEARMemorial Health System [facility]etta [facility] Hospital Comment on above:Performed By: #### UAMIC #### [facility] [address] [place], [place] [address]83 Scaler: LYNETTE Mederosolor (U)YellowNoalYAdena Fayette Medical Center Comment on above:Performed By: #### UAMIC #### [facility] [address] [place] [address] Scaler: Isidoro Ivy MDEpithelial cells LM Ql (Urine sed)0 TO 1Caqnkv3-0 [facility] HospitalComment on above:Performed By: #### UAMIC #### [facility] [address] [place] [address] Dr[address] [place], [place] [address]83 Scaler: Isidoro Ivy MDGlucose Ql (U)NegativeNormalNEGMemorial Health System Marietta Memorial HospitalComment on above:Performed By: #### UAMIC #### [facility] [address] [place], [place] [address] Scaler: Isidoro Ivy MDKetones Ql (U)NegativeNormalNEGMemorial Health System Marietta Memorial HospitalComment on above:Performed By: #### UAMIC #### [facility] [address] [place] [address] Scaler: Isidoro Ivy MDLeukocyte esterase Test strip Ql (U)NegativeNormal NEGMemorial Health System Marietta Memorial HospitalComment on above:Performed By: #### UAMIC #### [facility] [address] [place] [address] Scaler: Ephraim Mederos Strands1+AbnormalNONEMeHospital for Special Care Comment on above:Performed By: #### UAMIC #### [facility] [address] [place] [address] Scaler: Isidoro Ivy MDNitrite,UrNegativeNormalNEGMemorial Health System Marietta [facility] Hospital Comment on above:Performed By: #### UAMIC #### [facility] [address] [place] [address] Scaler: TAMY Mederos,Ur6.5Qhewgb2.0-9.0[facility] Memorial HospitalComment on above:Performed By: #### UAMIC #### [facility] [address] [place] [address] Scaler: Faye Mederos Ql (U)NegativeNormalNEGMemorial Health System Marietta Memorial HospitalComment on above:Performed By: #### UAMIC #### [facility] [address] [place] [address] Scaler: Hai Mederos. [place],Ur>1.826Yqwx7.010-1.020Mem[facility] Memorial HospitalComment on above:Performed By: #### UAMIC #### [facility] [address] [place] [address] Scaler: Lin Mederos RBC's0 TO 8Wcizun0-3KcynmSalem City Hospital Comment on above:Performed By: #### UAMIC #### [facility] [address] [place] [address] Scaler: Lin Mederos WBC's2 TO 0Rxhxnh1-0AkixkMemorial Health System [facility]etta [facility] Hospital Comment on above:Performed By: #### UAMIC #### [facility] [address] [place] [address] Scaler: Isidoro Sturtz, MDUrobilinogen,UrNormalNormal0.0-1.0[facility] HospitalComment on above:Performed By: #### UAMIC #### [facility] [address] [place] [address] [place] [address] Scaler: LYNETTE Mederosult,Urineon [id number],UrineSpecimen Description .VOIDED URINE Special Requests Site: Urine Culture NO SIGNIFICANT GROWTH Report Status FINAL 08/08/2023NormOhioHealth Southeastern Medical CenterComment on above: Performed By: #### URC #### [facility] [address] [place], [place] [id number] Scaler: Hammad Vuong MD [facility] [address] [place] [address] [place] [address] Scaler: ESTUARDO Mederosurgical Pathology Reporton [id number] Pathology Report(NOTE) Path Number: [id number] -- Diagnosis -- A. PROSTATE, LB, NEEDLE CORE BIOPSY: Benign prostatic tissue and seminal vesicle. B. PROSTATE, LLB, NEEDLE CORE BIOPSY: Benign prostatic tissue. C. PROSTATE, LM, NEEDLE CORE BIOPSY: Benign prostatic tissue. D. PROSTATE, LLM, NEEDLE CORE BIOPSY: Benign prostatic tissue. E. PROSTATE, LA, NEEDLE CORE BIOPSY: Benign prostatic tissue. F. PROSTATE, LLA, NEEDLE CORE BIOPSY: Benign prostatic tissue. G. PROSTATE, RB, NEEDLE CORE BIOPSY: Benign prostatic tissue. H. PROSTATE, RLB, NEEDLE CORE BIOPSY: Benign prostatic tissue. I. PROSTATE, RM, NEEDLE CORE BIOPSY: Benign prostatic tissue. J. PROSTATE, RLM, NEEDLE CORE BIOPSY: Benign prostatic tissue. K. PROSTATE, RA, NEEDLE CORE BIOPSY: Benign prostatic tissue. L. PROSTATE, RLA, NEEDLE CORE BIOPSY: Benign prostatic tissue. Vicki Theodore M.D. Electronically Signed Out 03/30/1404/12/2023 Clinical Information Pre-Op Diagnosis: PROSTATE CANCER; ELEVATED PSA Operative Findings: PROSTATE BIOPSY X 12 Operation Performed: SD PROSTATE NEEDLE BIOPSY ANY APPROACH kb Source of Specimen A: LB B: LLB C: LM D: LLM E: LA F: LLA G: RB H: RLB I: RM J: RLM K: RA L: RLA Gross Description JASON LIU, PROSTATE BIOPSIES All specimens are received in formalin on sponges and are shaw-white needle core biopsies less than < 0.1 cm in diameter with the following lengths: A. LB One core, 1.8 cm in length. Entirely 1cs. B. LLB One core, 1.9 cm in length. Entirely 1cs. C. LM One core, 1.6 cm in length. Entirely 1cs. D. LLM One core, 2.4 cm in length. Entirely 1cs. E. LA One core, 1.5 cm in length. Entirely 1cs. F. LLA Two cores, 0.8 and 1.0 cm in length. Entirely 1cs. G. RB One core, 1.3 cm in length. Entirely 1cs. H. RLB Two cores, 0.5 and 1.0 cm in length. Entirely 1cs. I. RM One core, 1.3 cm in length. Entirely 1cs. J. RLM One core, 1.5 cm in length. Entirely 1cs. K. RA One core, 1.4 cm in length. Entirely 1cs. L. RLA One core, 1.3 cm in length. Entirely 1cs. jj tm Isidoro Ivy M.D./kb2:04/10/2023 Microscopic Description A-L. Microscopic examination performed. Processing Lab: [address] [address] Interpretation Performed at [address] [address] SURGICAL PATHOLOGY CONSULTATION Patient Name: JASON LIU [facility] Rec: [id number] [facility] [employer] [facility] [facility] ANATOMIC PATHOLOGY [address] [place] [address]. [place], [place] [id number] NoWright-Patterson Medical Center HospitalUrinalysis with Microscopicon 06-22-2021-[facility] HealthBilirubin UrineNegativeNEGATIVEMercy HealthColor, UA YellowYellowMercy HealthEpithelial Cells UA0 TO 2Mercy HealthGlucose, UrNegative NEGATIVEMercy HealthInterpretation and review of laboratory resultsAbnormalMercy HealthKetones Ql (U)NegativeNEGATIVEMercy HealthLeukocyte esterase Test strip Ql (U)NegativeNEGATIVEMercy HealthMucus, UATRACEAbnormalNoneMercy HealthNitrite, UrineNegativeNEGATIVEMercy HealthpH, UA6.0Mercy HealthProtein, UANegative NEGATIVEMercy HealthRBC, UA0 TO 2Mercy HealthSpecific [place], UA1.020Mercy HealthTurbidity UAClearClearMercy HealthUrine HgbNegativeNEGATIVEMercy Health Urobilinogen, UrineNormalNormalMercy HealthWBC, UA0 TO 2Mercy HealthMercy Health Urinalysis with Microscopicon 44-53-6249Eencdwock, UANOT REPORTEDNoneMercy Health Work Phone: bacteria, UATRACEAbnormalNoneMercy Health Work Phone: bilirubin UrineNegativeNEGATIVEMercy Health Work Phone: casts UANOT REPORTED/LPFMercy Health Work Phone: color, UAYELLOWYELLOWMercy Health Work Phone: crystals, UANOT REPORTEDNone /HPFMercy Health Work Phone: epithelial Cells UA0 TO 2[facility] Work Phone: Glucose, UrNegativeNEGATIVEMercy Health Work Phone: Interpretation and review of laboratory results AbnormalMercy Health Work Phone: Ketones Ql (U)NegativeNEGATIVEMercy Health Work Phone: leukocyte esterase Test strip Ql (U)NegativeNEGATIVE [facility] Work Phone: Mucus, UANOT REPORTEDNoneMercy Health Work Phone: Nitrite, UrineNegativeNEGATIVEMercy Health Work Phone: Other Observations UANOT REPORTEDNOT REQ.[facility] Work Phone: pH, UA6.0[facility] Work Phone: protein (U) [Mass/Vol]NegativeNEGATIVEMercy Health Work Phone: rBC (U) [#/Vol]NoneMercy Health Work Phone: renal Epithelial, UANOT REPORTED0 /HPFMercy Health Work Phone: specific [place], UA1.020[facility] Work Phone: Trichomonas, UANOT REPORTEDNoneMercy Health Work Phone: Turbidity UACLEARCLEARMercy Health Work Phone: Urinalysis CommentsNOT REPORTEDMercy Health Work Phone: Urine HgbNegativeNEGATIVEMercy Health Work Phone: Urobilinogen, UrineNormalNormalMercy Health Work Phone: WBC, UANoneMercy Health Work Phone: Yeast, UANOT REPORTEDNoneMercy Health Work Phone: -[facility] Work Phone: Urinalysis with Microscopicon 62-59-6888Litkitvjx, UA NOT REPORTEDNoneMercy Health- [place], KYBacteria, UANOT REPORTEDNoneMercy Health- [place], KYBilirubin UrineNegativeNEGATIVEMercy Health- [place], KYCasts UANOT REPORTED /LPFMercy Health- [place], KYColor, UAYELLOWYELLOWMercy Health- [place], KYCrystals, UANOT REPORTEDNone /HPFMercy Health- [place], KYEpithelial Cells UA0 TO 2[facility]- [place], KYGlucose, UrNegativeNEGATIVEMercy Health- [place], KYInterpretation and review of laboratory resultsAbnormalMercy Health- [place], KYKetones Ql (U)NegativeNEGATIVE [facility]- [place], KYLeukocyte esterase Test strip Ql (U)NegativeNEGATIVEMercy Health- [place], KYMucus, UANOT REPORTEDNoneMercy Health- [place], KYNitrite, Urine NegativeNEGATIVEMercy Health- [place], KYOther Observations UANOT REPORTEDNOT REQ. [facility]- [place], KYpH, UA5.5[facility]- [place], KYProtein (U) [Mass/Vol]Negative NEGATIVEMercy Health- [place], KYRBC (U) [#/Vol]0 TO 2[facility]- [place], KYRenal Epithelial, UANOT REPORTED0 /HPFMercy Health- [place], KYSpecific [place], UA1.025 HighMercy Health- [place], KYTrichomonas, UANOT REPORTEDNoneMercy Health- [place], [place] Turbidity UACLEARCLEARMercy Health- [place], KYUrinalysis CommentsNOT REPORTEDMercy Health- [place], KYUrine HgbNegativeNEGATIVEMercy Health- [place], KYUrobilinogen, Urine NormalNormalMercy Health- [place], KYWBC, UA0 TO 2[facility]- [place], KYYeast, UANOT REPORTEDNoneMercy Health- [place], [place]-[facility]- [place], KYUrinalysis with Microscopic on 26-21-0897Oiytxbwus, UANOT REPORTEDNoneMercy Health Work Phone: bacteria, UANOT REPORTEDNoneMercy Health Work Phone: bilirubin UrineNegativeNEGATIVEMercy Health Work Phone: casts UANOT REPORTED/LPFMercy Health Work Phone: color, UAYELLOWYELLOWMercy Health Work Phone: crystals UANOT REPORTEDNone /HPFMercy Health Work Phone: epithelial Cells UA0 TO 2[facility] Work Phone: Glucose, UrNegativeNEGATIVEMercy Health Work Phone: Ketones Ql (U)NegativeNEGATIVEMercy Health Work Phone: leukocyte esterase Test strip Ql (U)NegativeNEGATIVE [facility] Work Phone: Mucus, UANOT REPORTEDNoneMercy Health Work Phone: Nitrite, UrineNegativeNEGATIVEMercy Health Work Phone: Other Observations UANOT REPORTEDNOT REQ.[facility] Work Phone: pH, UA6.0[facility] Work Phone: protein (U) [Mass/Vol]NegativeNEGATIVEMercy Health Work Phone: rBC (U) [#/Vol]NoneMercy Health Work Phone: renal Epithelial, UrineNOT REPORTED0 /HPFMercy Health Work Phone: specific [place], UA1.015[facility] Work Phone: Trichomonas, UANOT REPORTEDNoneMercy Health Work Phone: Turbidity UACLEARCLEARMercy Health Work Phone: Urinalysis CommentsNOT REPORTEDMercy Health Work Phone: Urine HgbNegativeNEGATIVEMercy Health Work Phone: Urobilinogen, UrineNormalNormalMercy Health Work Phone: WBC, UANoneMercy Health Work Phone: Yeast, UANOT REPORTEDNoneMercy Health Work Phone: -[facility] Work Phone: Encounters Encounter DateEncounter TypeCare ProviderFacilityStart: 01-16-2024 End: 51-82-1950yhcascuiavCSKBPFSWanda Benavidez [facility]tart: 01-16-2024 End: 24-45-8226Uaxxqientx hospital visit by physicianElian Dior MD Work Phone: mthz LaboratoryComment on above:Primary hypertension; Elevated serum creatinineStart: 09-03-2023 End: 58-25-0835etxarauglgHTNFNAP P HOUSE [facility] [place] HospitalStart: 09-03-2023 End: 66-58-8666Ewtshkhpxe hospital visit by [facility] Cat Scan [facility] Renate CT ScanComment on above:Frequency of urination; Renal colicStart: 08-07-2023 End: 13-75-5264fmaxbogrjcFLOQSQE P [place] [facility] [place] HospitalStart: 04-09-2023 End: 67-59-5673vsgisvgnrjSWQDTRO P [place] [facility] [place] HospitalStart: 04-09-2023 End: 03-49-6837Kpqhspiakl hospital visit by [facility] DO Work Phone: mthz LaboratoryStart: 05-26-2022 End: 50-32-9310jywksjzkxxXW NICHOL MCCORD .Facility:D8Azrpt: 03-17-2022 End: 35-52-0269Ihjuhukscm hospital visit by [facility] DO Work Phone: mthz LaboratoryComment on above:Elevated PSAStart: 02-14-2022 End: 70-02-6337arycwhmyjfSL NONE LISTED REQUESTFacility:Q9Bttqj: 08-01-2021 End: 05-77-0994jhvqnkotfeVC DOCTOR MISCFacility:O4Pkfdm: 06-22-2021 End: 73-70-4216Tigajrspfr hospital visit by [facility] DO Work Phone: mthz LaboratoryComment on above:NocturiaStart: 06-20-2021 End: 19-77-4090wfvknouthfZO NONE LISTED REQUESTFacility:S6Ofxnt: 05-10-2020 End: 45-97-8533Tsyezvnlfz hospital visit by [facility] Laboratory Comment on above:Chronic prostatitis; Frequency of urinationStart: 03-15-2020 End: 52-80-1114Jabubfhxrg hospital visit by [facility] Laboratory Comment on above:OrchitisStart: 04-14-2019 End: 97-01-6735Ljvdhdidra hospital visit by [facility] Laboratory Comment on above:Elevated PSAStart: 04-03-2019 End: 09-53-3671Qwqzbtkzgv hospital visit by physicianSr HouseMTHZ Laboratory Comment on above:Benign prostatic hyperplasia with lower urinary tract symptoms, symptom details unspecified; Elevated PSA Procedures DateProcedureProcedure DetailPerforming ClinicianStart: 80-01-5898Wgism metabolic panel calcium totalTanveer Rodolfo Dior MD Work Phone: Start: 59-67-9471Rn abdomen & pelvis w/o contrast materialBethfranco Ramirez HIGH SCHOOL MATH TUTOR - PLATING INSPECTOR Work Phone: start: 65-06-3721BGR screeningDR NONE LISTED REQUEST Comment on above:Performed By: #### DATPSA #### [facility] [address] [place] [address] Dr. Evangelina WileyStart: 69-15-1052GQF screeningDR NONE LISTED REQUESTComment on above:Performed By: #### DATPSA #### [facility] [address] [place] [address] Dr. Evangelina WileyStart: 37-85-7939Ofryg dip stick/tablet reagent auto microscopy Melissa Moore PA-C Work Phone: Start: 00-03-1883FYH screeningDR NONE LISTED REQUEST Comment on above:Performed By: #### DATPSA #### [facility] [address] [place] [address] Dr. Evangelina WileyStart: 55-42-2896Ltltd dip stick/tablet reagent auto microscopy Hayes Ramirez Work Phone: Start: 50-73-7640Jjnyb dip stick/tablet reagent auto microscopyMelissa Moore Work Phone: Start: 33-78-8315Dcish dip stick/tablet reagent auto microscopyJocy Saini Work Phone: Plan of Treatment DateCare ActivityDetailAuthorStart: 03-42-2985Xgppqgdaczc Syncytial Virus (RSV) or age 60 yrs+ (1 - 1-dose 75+ series)Respiratory Syncytial Virus (RSV) or age 60 yrs+ (1 - 1-dose 75+ series)[facility] CenterStart: 49-39-6270Vkycx panelLipidsBON [facility] Hospitalart: 27-83-6700QHH test (Diabetes, CKD 3-4, OR last GFR 15-59)GFR test (Diabetes, CKD 3-4, OR last GFR 15-59)[facility] Hospitalart: 24-38-0005Beimxuhsg vaccinationFlu vaccine (#1)[facility] CenterComment on above:Postponed from 09/27/2023 (Patient Refused)Start: 34-13-6029Vufbnbcl specific antigen measurementProstate Specific Antigen (PSA) Screening or MonitoringBon [facility] Hospitalart: 09-02-2024 GFR test (Diabetes, CKD 3-4, OR last GFR 15-59)GFR test (Diabetes, CKD 3-4, OR last GFR 15-59)[facility] Hospitalart: 08-87-4483Qmiwwcsszm Screen Depression ScreenBON [facility]: 04-17-2024 End: 27-18-2361Qkhncin encounter procedureGenesis Hospital Primary CareComment on above:r fu htn.6m PSAStart: 64-65-1056Ypfohsqv specific antigen measurementProstate Specific Antigen (PSA) Screening or MonitoringInova Loudoun Hospital: 80-98-3477MXZAF-19 Vaccine ( season)COVID-19 Vaccine ( season)[facility] Hospitalart: 10-17-2023 End: 53-27-6866Orfhfgd encounter wlyjdybph08/21/2024 9:00 AM EDT Office Visit [facility] Care [address] [place] [address] [address] [place] [address] Elian Dior MD [address] [place] [address] [address] [place] [address] htn labs nikole f/[facility] Primary CareComment on above:htn labs nikole f/uStart: 10-16-2023 End: 01-35-3660Stmovtz encounter /20/2024 8:30 AM EDT Office Visit [facility] Part of [address] [place] [address] Hayes Ramirez, HIGH SCHOOL MATH TUTOR - PLATING INSPECTOR [address] [place] [address] 6m PSA and symptom check [facility] Comment on above:6m PSA and symptom check BMPStart: 42-89-0573Erqfooggh vaccinationFlu vaccine (#1)[facility]Start: 04-17-2023 End: 98-70-3925Pubptbo encounter /20/2024 10:00 AM EST Office Visit [facility] Part [address] [place] [address] Hayes Ramirez, HIGH SCHOOL MATH TUTOR - PLATING INSPECTOR [address] [place] [address] 1 week [facility] UROLOGWright-Patterson Medical CenterComment on above:1 week resultsStart: 84-66-3421Wqxaauws specific antigen measurement Prostate Specific Antigen (PSA) Screening or MonitoringB[facility] Start: 32-73-5453Ewrudktjvvw Syncytial Virus (RSV) or age 60 yrs+ (1 - 1-dose 60+ series)Respiratory Syncytial Virus (RSV) or age 60 yrs+ (1 - 1-dose 60+ series)[facility]IAM[facility]GStart: 72-42-6316Dkpeqavsl vaccinationFlu vaccine (#1)[facility]Start: 37-02-8426Ynfcrfro specific antigen measurementProstate Specific Antigen (PSA) Screening or MonitoringToledo HospitalStart: 03-24-2022 End: 99-90-2751Nojzqbw encounter oxbyeswik07/27/2023 [facility]: 17-39-4973Zmdigkofj vaccinationFlu vaccine (Season Ended)[facility] HospitalStart: 29-91-2000Ozdoogxau vaccinationFlu vaccine (#1)[facility]Start: 08-03-2021 End: 51-34-7950Igetdsf encounter zxvsirsio96/08/2022 Office Visit Urology Melissa Moore PA-C [address] [place] [address] [address] [place] [address] [facility] UROLOGWright-Patterson Medical Center Start: 99-85-4743Vvkkgjwd specific antigen measurementPSA [facility] Work Phone: start: 05-68-4021Emmpcmhz specific antigen measurement PSA [facility]: 06-23-2020 End: 85-15-2199Fqjhqt Visit06/23/2020 Office Visit Urology Jocy Saini MD [address] [place] [address], [address] [place], [id number] [phone] [facility] UROLOGPremier Health Miami Valley Hospitaltart: 05-10-2020 End: 26-00-5729Hzlovu Visit05/10/2020 Office Visit Urology Jocy Saini MD [address] [place] [address], [address] [place], [address] [phone] [facility] UROLOGPremier Health Miami Valley Hospitaltart: 10-28-2019 Influenza vaccinationFlu vaccine (#1)[facility]: 04-21-2019 End: 87-74-5952Ktzhxb Visit04/21/2019 Office Visit Urology Jocy Saini MD [address] [place] [address], [address] [place], [id number] [phone] [facility] UROLOGYStart: 04-14-2019 End: 65-53-6817Upzujzuvh visit04/14/2019 Procedure visit UrologJocy Hooper MD [address] [place] [address], [address] [place] [address] [phone] [facility] UROLOGYStart: 24-39-4774Benbqqour vaccinationFlu vaccine (#1)[facility] Work Phone: start: 71-14-5950Jfqka cancer screen colonoscopyColon cancer screen colonoscopyDiley Ridge Medical Center [employer] Phone: start: 22-08-6179Pbfsmuwii for malignant neoplasm of colonColon cancer screen colonoscopyIsanti, KYStart: 2013 Shingles Vaccine (1 of 2)Shingles Vaccine (1 of 2)[facility] HospitalStart: 01-31-2008 Screening for malignant neoplasm of colonToledo HospitalStart: 62-86-7131Uanntykx screenDiabetes screenDiley Ridge Medical Center [employer] Work Phone: start: 72-75-8582Phzao panelDiley Ridge Medical Center HealthStart: 16-63-5743Arcaj screenLipid screenDiley Ridge Medical Center [employer] Work Phone: start: 92-76-4585Tmsyblev screenDiabetes [facility] CenterStart: 32-56-2269UVnH/Tdap/Td vaccine (1 - Tdap)DTaP/Tdap/Td vaccine (1 - Tdap)[facility] SharypicStart: 95-12-0182Gaehtrkmx C screeningHepatitis C [facility] CenterStart: 61-64-2619UOWUO-19 Vaccine (1)COVID-19 Vaccine (1)[employer] Phone: start: 31-61-0199EYH screenHIV screenDiley Ridge Medical Center [employer] Phone: start: 90-22-3686CSK screeningHIV [facility] Health Start: 98-26-9691Bsivpkxfzk ScreenDepression [facility] HospitalStart: 1974 DTaP/Tdap/Td vaccine (1 - Tdap)DTaP/Tdap/Td vaccine (1 - Tdap)[facility] [employer] Phone: start: 71-58-4404NJGCX-19 Vaccine (1)COVID-19 Vaccine (1)[facility] HospitalStart: 37-85-1834GRRBN-19 Vaccine (#1)COVID-19 Vaccine (#1)[facility] [employer]Start: 97-26-5041Vaphuloyl C screenHepatitis C [facility] [employer] Work Phone: start: 71-49-1866Vqkomfjxm C screeningHepatitis C screenMeruromovie, [place] End: 60-09-3003Udteyjjxy/GC DNA, UrineChlamydia/GC DNA, Urine Microbiology Routine Orchitis 1 Occurrences starting 03/15/2020 until 03/15/2020[facility] Centeruromovie, KYComment on above:1 Occurrences starting 03/15/2020 until 03/15/2020 Chlamydia/GC DNA, UrineChlamydia/GC DNA, Urine Microbiology Routine Orchitis 03/15/2020 5:29 PM ESTLouis Stokes Cleveland Va Medical Centeruromovie, KYCT Abdomen and Pelvis WO contrastCT ABDOMEN PELVIS WO CONTRAST Additional Contrast? None Imaging STAT Frequency of urination Renal colic 09/03/2023 3:42 PM EDON [facility] [employer] End: 09-05-2540Hgdrgpb, UrineCulture, Urine Microbiology Routine Orchitis 1 Occurrences starting 03/15/2020 until 03/15/2020[facility] Centeruromovie, KYComment on above:1 Occurrences starting 03/15/2020 until 1Culture, UrineMerDuokan.com HealthAllecra Therapeutics, [place] End: 37-77-6790Wghxzxl, UrineCulture, Urine Microbiology Routine Chronic prostatitis Frequency of urination 1 Occurrences starting 05/10/2020 until 05/10/2020[facility] Medical CenterNEONC Technologies Phone: comment on above:1 Occurrences starting 05/10/2020 until 05/10/2020 End: 55-52-7487Hbrpgqa, [employer] Phone: comnxqa on above:1 Occurrences starting 06/22/2021 until 06/22/2021 End: 65-25-2558Qjegiwcz PathologySurgical Pathology Lab Routine Elevated PSA 1 Occurrences starting 04/14/2019 until 04/14/2019[facility] Medical CenterNEONC Technologies Phone: comvdns on above:1 Occurrences starting 04/14/2019 until 04/14/2019 End: 97-09-2251Mfshorji PathologySurgical Pathology Lab Routine Once for 1 Occurrences starting 04/14/2019 until 04/14/2019[facility] CenterNEONC Technologies Phone: comment on above:Once for 1 Occurrences starting 04/14/2019 until 04/14/2019 End: 23-58-1521Hhmlstqq PathologySurgical Pathology Lab Routine Elevated PSA 1 Occurrences starting 03/17/2022 until 03/17/2022ON [employer] Phone: Comment on above:1 Occurrences starting 03/17/2022 until 03/17/2022 End: 13-61-8942TIINQKDI PATHOLOGY REPORTSURGICAL PATHOLOGY REPORT Lab Routine Once for 1 Occurrences starting 03/17/2022 until 03/17/2022ON [employer] Phone: comment on above:Once for 1 Occurrences starting 03/17/2022 until 03/17/2022 End: 82-65-3721EBBYMSQE PATHOLOGY REPORTSURGICAL PATHOLOGY REPORT Lab Routine Once for 1 Occurrences starting 04/09/2023 until 4BON [employer] Phone: Comment on above:Once for 1 Occurrences starting 04/09/2023 until 04/09/2023 End: 05-76-2941Xjlqf culture clean catchUrine culture clean catch Microbiology Routine Benign prostatic hyperplasia with lower urinary tract symptoms, symptom details unspecified Elevated PSA 1 Occurrences starting 04/03/2019 until 04/03/2019[facility] Phone: comment on above:1 Occurrences starting 04/03/2019 until 04/03/2019Urine culture clean catchUrine culture clean catch Microbiology Routine Benign prostatic hyperplasia with lower urinary tract symptoms, symptom details unspecified Elevated PSA 04/03/2019 8:[address] [facility] [facility] Phone: Payers DatePayer CategoryPayerPolicy [id number] [id number] Social History DateTypeDetailFacilityStart: 04-03-2019 End: 71-56-6490Fbzovvu smoking status NHISNever smokerJason's House Phone: start: 04-03-2019 End: 88-23-1759Fgjjbdm intakeCurrent drinker of alcohol (finding)[facility] Phone: start: 71-70-1133Rczhbxy CommentsocialLouis Stokes [facility] Va Medical CenterNEONC Technologies Phone: start: 00-09-5442Ngw Assigned At BirthNot on [facility] Hospital at MonmouthNEONC Technologies Phone: start: 03-15-2020 End: 39-51-6502Urzcznj use and exposureNever usedLouis Stokes Cleveland Va Medical CenterQuippo Infrastructure- [place], [place]Start: 04-09-2023 End: 79-54-9026Ooyiyyy intakeEx-drinker (finding)[employer] PharmaceuticalStart: 04-09-2023 End: 89-56-0244Gyggqaf of Social functionKINGMAN REGIONAL MEDICAL CENTER KenguruStart: 04-09-2023 End: 74-26-3250Ovlrmaz use [facility] KenguruHow hard is it for you to pay for the very basics like food, housing, medical care, and heatingNot hard at allKINGMAN REGIONAL MEDICAL CENTER K[employer](I/We) worried whether (my/our) food would run out before (I/we) got money to buy more.Never trueKING[facility] KenguruAt any time in the past 12 months, were you homeless or living in skilled nursing [including now]?NoKING[facility] Evaluation note Note Date & TypeNoteFacilityEvaluation note* Diagnosis Nocturia documented in this encounter [facility] Phone: Evaluation note Note Date & TypeNoteFacilityEvaluation note* Diagnosis Elevated PSA Elevated prostate specific antigen (PSA) documented in this encounter [employer] Phone: Evaluation note Note Date & TypeNoteFacilityEvaluation note* Diagnosis Frequency of urination Urinary frequency Renal colic documented in this encounter [facility] Evaluation note Note Date & TypeNoteFacilityEvaluation note* Diagnosis Primary hypertension Unspecified essential hypertension Elevated serum creatinine Other nonspecific findings on examination of blood documented in this encounter [facility] Assessments Diagnosis Benign prostatic hyperplasia with lower urinary tract symptoms, symptom details unspecified Elevated PSA Elevated prostate specific antigen (PSA) Diagnosis Elevated PSA Elevated prostate specific antigen (PSA) Diagnosis Orchitis Orchitis and epididymitis, unspecified Diagnosis Chronic prostatitis Frequency of urination Urinary frequency Advance Directives No Advanced Directives Records FoundDocuments on File TypeDate RecordedPatient RepresentativeExplanationAdvance Directives and Living WillPower of AttorneyTypeDate RecordedPatient RepresentativeExplanationACP- Advance DirectiveACP-Power of Kiln Puller Summary Purpose Family History No Family History Records FoundNo Family History Records Found Reason for Referral SpecialtyDiagnoses / ProceduresReferred By ContactReferred To ContactRadiology Diagnoses Frequency of urination Renal colic Procedures CT ABDOMEN PELVIS WO CONTRAST Additional Contrast? None Hayes Ramirez, HIGH SCHOOL MATH TUTOR - PLATING INSPECTOR [address] [facility] [address] [place] [address] Referral IDStatusReasonStart DateExpiration DateVisits RequestedVisits [id number] Additional Source Comments Care Teams (unrecognized sec tion and content) Team MemberRelationshipSpecialtyStart DateLeonid Christina, Sr Michael Barakat DO [address] [place] [address] [facility] - [facility]04/03/19Team MemberRelationshipSpecialtyStart Sr Michael Schaeffer DO [address] [place] [address] [facility] - [facility]04/03/19Team MemberRelationshipSpecialtyStart DateMichael Holm Sr., DO [address] [place] [address] [facility] - [facility]04/03/19Team MemberRelationshipSpecialtyStart DateEnd Date Michael Christina Roshni Bauman DO [address] [place] [address] [facility] - [facility]04/03/19Te MemberRelationshipSpecialtyStart DateEnd Date Eilan Dior MD [address] [facility] [address] [place], [place] [id number] [facility] - [facility] Medicine10/15/23 (unrecognized sect ion and content) No Status Records FoundNo Status Records Found INFORMATION SOURCE (unrecogn ized section and content) DATE CREATED AUTHOR 05/31/2022 [facility] DATE CREATED AUTHOR AUTHOR'S ORGANIZ ATION 01/18/2024 [facility] Reason for Visit (unrecogniz ed section and content) SpecialtyDiagnoses / ProceduresReferred By ContactReferred To ContactRadiology Diagnoses Frequency of urination Renal colic Procedures CT ABDOMEN PELVIS WO CONTRAST Additional Contrast? None Hayes Ramirez, HIGH SCHOOL MATH TUTOR - PLATING INSPECTOR [address] [facility] [address] [place] [address] Referral IDStatusReasonStart DateExpiration DateVisits RequestedVisits [id number] FOR RECORDS PERTAINING TO PATIENTS WHO ARE OR HAVE BEEN ENROLLED IN A CHEMICAL DEPENDENCY/SUBSTANCEABUSE PROGRAM, SOME INFORMATION MAY BE OMITTED. This clinical summary was aggregated from multiple sources. Caution should be exercised in using it in the provision of clinical care. This summary normalizes information from multiple sources, and as a consequence, information in this document may materially change the coding, format and clinical context of patient data. In addition, data may be omitted in some cases. CLINICAL DECISIONS SHOULD BE BASED ON THE PRIMARY CLINICAL RECORDS. [facility]. provides no warranty or guarantee of the accuracy or completeness of information in this document.
[2024-12-19 10:24] LABS: Anion Gap 13.9; Blood Urea Nitrogen 25.0 mg/dL (7.0-18.0); Calcium 9.0 mg/dL (8.5-10.1); Carbon Dioxide 26.9 mmol/L (21.0-32.0); Chloride 106 mmol/L (98-107); Estimated GFR (African America >60 (>=60 mL/min/1.73m^2); Estimated GFR (Non-African Ame >60 (>=60 mL/min/1.73m^2); Glucose 102 mg/dL (74-106); Potassium 3.8 mmol/L (3.5-5.1); Sodium 143 mmol/L (136-145)
== END 2024-12-19 08:35 | disposition home or self-care (01) ==
LOC: LAB 08:37
PROVIDERS: Visit Provider Family Medicine
DX: E78.2 Mixed hyperlipidemia (principal); Z11.4 Encounter for screening for human immunodeficiency virus [HIV]; Z11.59 Encounter for screening for other viral diseases
CPT/HCPCS: 36415; 80048; 86803; 87389